=== PATIENT | female | born 1970 | race African-American/Black ===

== ENCOUNTER 2022-11-01 16:24 | Emergency (ER) | payer MEDICAID, OTHER ==
[~2022-11-01] VITALS: Ht 167.6 cm; Wt 115.0 kg
[~2022-11-01 16:24] MED LIST: BRIM5DRO EACHEYE; LIP40 PO; METF-416 PO; OMEP40CA20 PO; TRAV2.5D9 EACHEYE
[2022-11-01 16:43] VITALS: O2SAT 97
[2022-11-01 17:27] LABS: BASOPHILS % 0.4 % (0.0-2.0); EOSINOPHILS % 0.4 % (0.0-5.0); HEMOGLOBIN. 13.4 g/dL (12.0-16.0); LYMPHOCYTES % 40.5 % (20.0-50.0); MEAN CORPUSCULAR HEMOGLOBIN 30.5 pg (28.0-32.0); MEAN CORPUSCULAR HGB CONC 32.8 g/dL (31.0-37.0); MEAN PLATELET VOLUME 8.6 fl (7.4-10.4); MONOCYTES % 7.7 % (2.0-8.0); PLATELET 204 x1000/uL (130-400); RED BLOOD CELL COUNT 4.41 mill/uL (4.2-5.4); RED CELL DISTRIBUTION WIDTH 13.3 % (11.6-14.6); WHITE BLOOD COUNT 5.6 x1000/uL (4.5-11.0)
[2022-11-01 17:38] LABS: CHLORIDE 102 mEq/L (98-107); INDEX HEMOLYSI 2 (1-3); INDEX ICTERIC 1 (1-4); INDEX LIPEMIC 1 (1-3); SODIUM 135 mEq/L (136-145)
[2022-11-01 17:45] LABS: ALANINE AMINOTRANSFERASE 45 IU/L (13-61); ALBUMIN 2.9 g/dL (3.4-5.0); ASPARTATE AMINOTRANSFERASE 27 IU/L (15-37); BILIRUBIN TOTAL 0.3 mg/dL (0.1-1.0); CALCIUM 9.1 mg/dL (8.5-10.1); CARBON DIOXIDE 29 mEq/L (21-32); CREATININE 0.6 mg/dL (0.6-1.3); PROTEIN TOTAL 7.1 g/dL (6.0-8.3); UREA NITROGEN BLOOD 9 mg/dL (7-21)
[2022-11-01 17:56] LABS: GLUCOSE 472 mg/dL (70-105)
[2022-11-01] MEDS ORDERED: ASPIRIN 81MG TABLET PO NR (18:15)
[2022-11-01 18:45] LABS: CLARITY URINE CLEAR (CLEAR); COLOR URINE YELLOW (YELLOW); GLUCOSE URINE 3+ (NEGATIVE); KETONES URINE NEGATIVE (NEGATIVE); LEUKOCYTE ESTERASE URINE NEGATIVE (NEGATIVE); NITRITE URINE NEGATIVE (NEGATIVE); OCCULT BLOOD URINE NEGATIVE (NEGATIVE); PROTEIN URINE NEGATIVE (NEGATIVE); SPECIFIC GRAVITY URINE 1.038 (1.005-1.030); UROBILINOGEN URINE 0.2 E.U./dL (0.2-1.0)
[2022-11-01 18:59] LABS: BACTERIA URINE 1+; RBC URINE 0-2 /hpf (0-2); SQUAMOUS EPITHELIAL CELL URINE FEW /lpf (RARE/1+); WBC URINE 0-2 /hpf (0-2)
[2022-11-01 20:37] LABS: TROPONIN I HIGH SENSITIVITY 6 ng/L (<54)
[2022-11-01 22:00] LABS: TROPONIN I HIGH SENSITIVITY 6 ng/L (<54)
[2022-11-02 00:11] VITALS: BP 137/69; PULSE 74; RESP 19; TEMP 98.6
== END 2022-11-01 23:51 | disposition short-term general hospital (02) ==
LOC: ER 16:24
DX: R07.89 Other chest pain (principal); R10.9 Unspecified abdominal pain; E11.9 Type 2 diabetes mellitus without complications; K21.9 Gastro-esophageal reflux disease without esophagitis; I10 Essential (primary) hypertension; E78.00 Pure hypercholesterolemia, unspecified; I25.2 Old myocardial infarction; I25.10 Atherosclerotic heart disease of native coronary artery without angina pectoris; Z90.49 Acquired absence of other specified parts of digestive tract; Z90.710 Acquired absence of both cervix and uterus; Z88.2 Allergy status to sulfonamides
CPT/HCPCS: 80053; 81003; 85025; 85379; 84484; 36415; 71045; 93005; 99285; Z7610

== ENCOUNTER 2024-04-03 05:58 | Emergency (ER) | payer OTHER ==
[~2024-04-03] VITALS: Ht 167.6 cm; Wt 120.0 kg
[~2024-04-03 05:58] MED LIST changes: +TRAV2.5D EACHEYE; -TRAV2.5D9 EACHEYE
[2024-04-03 06:04] VITALS: O2SAT 98
[2024-04-03 06:05] VITALS: BP 128/77; PULSE 82; RESP 16; TEMP 36.8; O2SAT 98
[2024-04-03] MEDS: IBUPROFEN 600MG TABLET PO ONE (07:19)
== END 2024-04-03 09:28 | disposition left against medical advice (07) ==
LOC: ER 05:58
DX: M25.511 Pain in right shoulder (principal); M54.2 Cervicalgia; E11.9 Type 2 diabetes mellitus without complications; Z88.2 Allergy status to sulfonamides; Z90.710 Acquired absence of both cervix and uterus; Z79.899 Other long term (current) drug therapy; Z53.21 Procedure and treatment not carried out due to patient leaving prior to being seen by health care provider
CPT/HCPCS: 99282; A4565

== ENCOUNTER 2024-05-05 00:40 | Emergency (ER) | payer OTHER | END 2024-05-05 01:15 | disposition left against medical advice (07) | LOC: ER 00:40 | DX: R07.89 Other chest pain (principal); Z53.21 Procedure and treatment not carried out due to patient leaving prior to being seen by health care provider ==